=== PATIENT | female | born 1985 | race Caucasian/White ===

== ENCOUNTER 2017-03-21 00:28 | Emergency (ER) | payer MEDICARE ==
[2016-02-22 13:35] VITALS: BMI 23.7
[~2017-03-21 00:28] MED LIST: ELAVIL10 MG PO; HYDROCODONE-APA1 TAB PO; IBUPROFEN600 MG PO; NEURONTIN 400400 MG PO; PROAIR HFA8.5 GM INH; WELLBUTRIN SR150 MG PO
== END 2017-03-21 02:30 | disposition home or self-care (01) ==
LOC: D.ER 00:28
DX: R10.11 Right upper quadrant pain (principal); R31.9 Hematuria, unspecified; F17.200 Nicotine dependence, unspecified, uncomplicated

== ENCOUNTER 2017-09-28 13:46 | Emergency (ER) | payer BC ==
[2016-02-22 13:35] VITALS: BMI 23.7
[2017-09-28 14:32] LABS: BASOPHILS 0.2 % (0-2); EOSINOPHILS 1.1 % (0-7); HEMATOCRIT 44.5 % (36.0-48.0); HEMOGLOBIN 14.8 g/dL (12-16); IMMATURE GRANULOCYTES 0.2 % (0-5); LYMPHOCYTES 23.2 % (15-50); MCHC 33.3 g/dL (31.0-37.0); MCV 96.1 fL (80.0-100.0); MEAN PLATELET VOLUME 10.8 fL (7.4-10.4); MONOCYTES 7.2 % (2-11); NEUTROPHILS 68.1 % (40-80); PLATELET COUNT 192 10x3/uL (130-400); RBC 4.63 10x6/uL (4.00-5.40); RDW 12.3 % (11.5-14.5); WBC 8.4 10x3/uL (4.8-10.8)
[2017-09-28 14:52] LABS: ALBUMIN 4.1 g/dL (3.4-5.0); ALKALINE PHOSPHATASE 75 U/L (46-116); ALT (SGPT) 33 U/L (10-68); AMYLASE - SERUM 32 U/L (25-115); CALC OSMOLALITY 279 mosm/kg (275-300); CALCIUM 8.9 mg/dL (8.5-10.1); CARBON DIOXIDE 28.7 mmol/L (21.0-32.0); CHLORIDE - SERUM 104 mmol/L (98-107); CREATININE - SERUM 0.8 mg/dL (0.6-1.3); GLUCOSE 98 mg/dL (74-106); LIPASE 94 U/L (73-393); POTASSIUM - SERUM 3.6 mmol/L (3.5-5.1); PROTEIN - SERUM 7.6 g/dL (6.4-8.2); SODIUM 139 mmol/L (136-145); UREA NITROGEN 19 mg/dL (7-18); eGFR NON AFRICAN AMERICAN 87 mL/min (90-120)
[2017-09-28 14:56] LABS: APPEARANCE HAZY (CLEAR); BILIRUBIN NEGATIVE (NEGATIVE); COLOR YELLOW (YELLOW); GLUCOSE NEGATIVE (NEGATIVE); KETONE NEGATIVE (NEGATIVE); NITRITE NEGATIVE (NEGATIVE); PROTEIN NEGATIVE (NEGATIVE); SPECIFIC GRAVITY 1.015 (1.005-1.020); UROBILINOGEN NORMAL (NORMAL)
[2017-09-28 14:57] LABS: HCG URINE NEGATIVE (NEGATIVE)
[2017-09-28 15:05] LABS: BACTERIA FEW /hpf (NONE SEEN); EPITHELIAL CELLS OCC /hpf (0-5); RED CELLS - URINE 0-5 /hpf (0-5); WHITE CELLS - URINE 0-5 /hpf (0-5)
== END 2017-09-28 15:58 | disposition home or self-care (01) ==
LOC: D.ER 13:46
PROVIDERS: Emergency Medicine
DX: A08.4 Viral intestinal infection, unspecified (principal); F17.200 Nicotine dependence, unspecified, uncomplicated

== ENCOUNTER → 2019-03-12 16:05 | Outpatient (CLI) | payer BC, OTHER ==
[2016-02-22 13:35] VITALS: BMI 23.7
== END | disposition home or self-care (01) ==
LOC: D.US 16:00
PROVIDERS: ATTEND Family Medicine
DX: M79.604 Pain in right leg (principal)

== ENCOUNTER 2020-04-10 18:13 | Emergency (ER) | payer BC, OTHER ==
[~2020-04-10] VITALS: Ht 167.6 cm; Wt 70.5 kg
[2020-04-10 18:22] VITALS: Ht 167.6 cm; Wt 70.5 kg
[2020-04-10 19:50] LABS: BASOPHILS 0.4 % (0-2); EOSINOPHILS 2.3 % (0-7); HEMATOCRIT 39.9 % (36.0-48.0); HEMOGLOBIN 12.8 g/dL (12-16); IMMATURE GRANULOCYTES 0.1 % (0-5); LYMPHOCYTES 33.5 % (15-50); MCH 31.1 pg (26.0-34.0); MCHC 32.1 g/dL (31.0-37.0); MCV 96.8 fL (80.0-100.0); MEAN PLATELET VOLUME 10.1 fL (7.4-10.4); MONOCYTES 5.2 % (2-11); NEUTROPHILS 58.5 % (40-80); RBC 4.12 10x6/uL (4.00-5.40); RDW 12.6 % (11.5-14.5); WBC 10.2 10x3/uL (4.8-10.8)
[2020-04-10 19:57] LABS: PLATELET COUNT 274 10x3/uL (130-400)
[2020-04-10 20:01] LABS: BILIRUBIN NEGATIVE (NEGATIVE); KETONE NEGATIVE (NEGATIVE); NITRITE NEGATIVE (NEGATIVE); UROBILINOGEN NORMAL mg/dL (< 2)
[2020-04-10 20:02] LABS: BACTERIA MODERATE HPF (NONE SEEN); EPITHELIAL CELLS 0-5 /hpf (0-5); WHITE CELLS - URINE 0-5 HPF (0-4)
[2020-04-10 20:19] LABS: CALC OSMOLALITY 281 mosm/kg (275-300); CALCIUM 8.6 mg/dL (8.5-10.1); CARBON DIOXIDE 25.1 mmol/L (21.0-32.0); CHLORIDE - SERUM 106 mmol/L (98-107); CREATININE - SERUM 0.7 mg/dL (0.6-1.3); GLUCOSE 117 mg/dL (74-106); POTASSIUM - SERUM 3.9 mmol/L (3.5-5.1); SODIUM 140 mmol/L (136-145); UREA NITROGEN 17 mg/dL (7-18); eGFR NON AFRICAN AMERICAN > 90 mL/min (90-120)
[2020-04-10 20:29] LABS: ALBUMIN 3.9 g/dL (3.4-5.0); ALKALINE PHOSPHATASE 65 U/L (30-120); ALT (SGPT) 22 U/L (10-68); AMYLASE - SERUM 44 U/L (25-115); BILIRUBIN - TOTAL 0.21 mg/dL (0.2-1.3); LIPASE 99 U/L (73-393); PROTEIN - SERUM 6.9 g/dL (6.4-8.2); TROPONIN-I 0.022 ng/mL (0.000-0.060)
[2020-04-10 23:42] VITALS: BP 110/69
== END 2020-04-10 23:44 | disposition home or self-care (01) ==
LOC: D.ER 18:13
PROVIDERS: Family Medicine
DX: R10.32 Left lower quadrant pain (principal)

== ENCOUNTER 2020-09-03 14:43 | Emergency (ER) | payer BC ==
[~2020-09-03] VITALS: Ht 167.6 cm; Wt 72.7 kg
[2020-09-03 14:46] VITALS: BP 157/120; Ht 167.6 cm; Wt 72.7 kg
[2020-09-03 15:11] LABS: BASOPHILS 0.2 % (0-2); EOSINOPHILS 0.5 % (0-7); HEMATOCRIT 41.2 % (36.0-48.0); HEMOGLOBIN 13.6 g/dL (12-16); IMMATURE GRANULOCYTES 0.3 % (0-5); LYMPHOCYTE ABS# 3.65 10x3/uL (1.18-3.74); LYMPHOCYTES 28.3 % (15-50); MCH 32.2 pg (26.0-34.0); MCV 97.4 fL (80.0-100.0); MEAN PLATELET VOLUME 9.8 fL (7.4-10.4); MONOCYTES 4.5 % (2-11); NEUTROPHIL ABS# 8.52 10x3/uL (1.56-6.13); NEUTROPHILS 66.2 % (40-80); PLATELET COUNT 291 10x3/uL (130-400); RBC 4.23 10x6/uL (4.00-5.40); RDW 12.5 % (11.5-14.5); WBC 12.9 10x3/uL (4.8-10.8)
[2020-09-03 15:15] LABS: CALC OSMOLALITY 267 mosm/kg (275-300); CALCIUM 8.9 mg/dL (8.5-10.1); CARBON DIOXIDE 25.8 mmol/L (21.0-32.0); CHLORIDE - SERUM 101 mmol/L (98-107); CREATININE - SERUM 0.7 mg/dL (0.6-1.3); GLUCOSE 95 mg/dL (74-106); POTASSIUM - SERUM 3.5 mmol/L (3.5-5.1); SODIUM 134 mmol/L (136-145); UREA NITROGEN 12 mg/dL (7-18); eGFR NON AFRICAN AMERICAN > 90 mL/min (90-120)
[2020-09-03 15:24] LABS: ALBUMIN 4.2 g/dL (3.4-5.0); ALKALINE PHOSPHATASE 74 U/L (30-120); ALT (SGPT) 23 U/L (10-68); AMYLASE - SERUM 41 U/L (25-115); BILIRUBIN - TOTAL 0.35 mg/dL (0.2-1.3); LIPASE 83 U/L (73-393); PROTEIN - SERUM 7.4 g/dL (6.4-8.2)
[2020-09-03 15:25] LABS: TROPONIN-I < 0.017 ng/mL (0.000-0.060)
[2020-09-03 15:55] LABS: BACTERIA FEW HPF (NONE SEEN); BILIRUBIN NEGATIVE (NEGATIVE); KETONE NEGATIVE (NEGATIVE); NITRITE NEGATIVE (NEGATIVE); SQUAMOUS EPITHELIAL OCC HPF (0-4); UROBILINOGEN NORMAL mg/dL (< 2); WHITE CELLS - URINE NONE SEEN HPF (0-4)
[2020-09-03] MEDS ORDERED: ZOFRAN ODT4 MG/UDTAB PO (18:30)
== END 2020-09-03 18:50 | disposition home or self-care (01) ==
LOC: D.ER 14:43
PROVIDERS: Family Medicine
DX: R10.32 Left lower quadrant pain (principal); M54.9 Dorsalgia, unspecified

== ENCOUNTER 2020-11-02 10:04 | Day surgery (SDC) | payer BC ==
[2020-10-30 10:30] LABS: BASOPHILS 0.6 % (0-2); EOSINOPHILS 2.5 % (0-7); HEMATOCRIT 36.9 % (36.0-48.0); HEMOGLOBIN 12.1 g/dL (12-16); IMMATURE GRANULOCYTES 0.2 % (0-5); LYMPHOCYTE ABS# 2.25 10x3/uL (1.18-3.74); LYMPHOCYTES 35.6 % (15-50); MCH 31.2 pg (26.0-34.0); MCHC 32.8 g/dL (31.0-37.0); MCV 95.1 fL (80.0-100.0); MEAN PLATELET VOLUME 10.4 fL (7.4-10.4); MONOCYTES 4.6 % (2-11); NEUTROPHIL ABS# 3.57 10x3/uL (1.56-6.13); NEUTROPHILS 56.5 % (40-80); PLATELET COUNT 240 10x3/uL (130-400); RBC 3.88 10x6/uL (4.00-5.40); RDW 12.2 % (11.5-14.5); WBC 6.3 10x3/uL (4.8-10.8)
[~2020-11-02] VITALS: Ht 167.6 cm; Wt 74.4 kg
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
[~2020-11-02 10:04] MED LIST changes: +IBUPROFEN800 MG PO; +ULTRAM50 MG PO; +ZOFRAN ODT4 MG/UDTAB PO
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
[2020-11-02 10:41] VITALS: BP 107/59; Ht 167.6 cm; Wt 74.4 kg
[2020-11-02 10:54] LABS: HCG URINE NEGATIVE (NEGATIVE)
--- NOTE | 2020-11-02 14:30 | NUR ---
DC TEACHING TO PT AND COMPLETE. VERBALIZED UNDERSTANDING. PIV REMOVED, CATHETER INTACT, PRESSURE APPLIED. PT GETTING DRESSED WITH 'S HELP. 3306 PT DC'D VIA TO POV WITH ALL BELONGINGS AND DC PACKET. DRIVING.
== END 2020-11-02 14:52 | disposition home or self-care (01) ==
LOC: D.OPS 10:04
PROVIDERS: ATTEND Obstetrics & Gynecology
DX: R10.2 Pelvic and perineal pain (principal); N92.0 Excessive and frequent menstruation with regular cycle; N93.9 Abnormal uterine and vaginal bleeding, unspecified

== ENCOUNTER 2020-12-18 06:32 | Day surgery (SDC) | payer BC ==
[~2020-12-18] VITALS: Ht 165.1 cm; Wt 74.1 kg
--- NOTE | ~2020-12-18 | HEMODYNAMI ---
PATIENT:SANTA FLORES MEDICAL RECORD: [id number] : 83 [id number] ADMISSION DATE: 12/18/20 Generatedon:19:55 Patient name: SANTA FLORES Patient #: [id number] SSN: DO B: 1985 Date of study: 12/18/2020 Page: Of Hemodynamic Procedure Report Patient Data Patient Demographics Procedure consent was obtained First Name: SANTA Gender: Female Last Name: MARK : 1985 [facility] Initial: BETSY Age: 35 year(s) Patient #: [id number] Race: Unknown Additional ID: [id number] Contact details Address: [address] [place] [address] State: [place] City: [facility] Zip code: [address] Past Medical History Allergies Allergen Reaction Date Comments Reported Penicillins 12/18/2020 metronidazole,corticosteroids,neuromuscular blockers Sulfa drugs 12/18/2020 Other 12/18/2020 metronidazole,corticosteroids,neuromuscular allergy blockers Admission Admission Data Admission Date: 12/18/2020 Admission Time: 6:32 Height (in.): 65 BSA: 1.81 (m2) Height (cm.): 165.1 BMI: 27.12 (kg/m2) Weight (lbs.): 163 Weight (kg.): 73.94 Procedure Procedure Types Cath Procedure Peripheral Cath Diagnostic Procedure Venography Extremity Bilat Venogram Lower Ext Procedure Description Procedure Date Procedure Date: 12/18/2020 Procedure Start Time: 9:10 Procedure Staff Name Function Cheko Kinney MD Performing Physician Jeana Mccauley RT Housing Court Judge Bindu Garcia RN Nurse Isiah Spears RT Scrub Procedure Data Cath Procedure Fluoroscopy Diagnostic fluoroscopy Total fluoroscopy Time: 9.3 time: 9.3 min min Diagnostic fluoroscopy Total fluoroscopy dose: 223 dose: 223 mGy mGy Contrast Material Contrast Material Type Amount (ml) Isovue 300 45 Diagnostic catheters Device Type Used For End Catheter Placement Ivania Whyte 5FR. 100CM catheter ([id number]) Procedure Medications Medication Administration Route Dosage Lidocaine 1% added to field 20 Heparin Flush Bag added to field 2 bags (1000units/500ml NS) Benadryl I.V. 25 mg Versed I.V. 1 mg Fentanyl I.V. 50 mcg Versed I.V. 0.5 mg Fentanyl I.V. 25 mcg Ancef (1Gm/50ml NS) I.V.P.B 2 g Versed I.V. 0.5 mg Fentanyl I.V. 25 mcg Hemodynamics Rest BSA: 1.81 (m2) O2 Consumption: Estimated: 181.34 (ml/min) O2 Consumption indexed : Estimated:100.19 (ml/min/m) Heart Rate: 61 (bpm) Snapshots Pre Cath Intra NCS Post Cath Vital Signs Time Heart Resp SPO2 etCO2 NIBP (mmHg) Rhythm Pain Sedation Rate (ipm) (%) (mmHg) Status Level (bpm) 8:46:52 69 14 100 25.4 124/70(85) NSR 0 (11) 10(A) , No pain 8:51:02 64 16 100 0 124/79(94) NSR 0 (11) 10(A) , No pain 8:55:12 61 12 100 0 123/75(94) NSR 0 (11) 10(A) , No pain 9:00:11 64 4 100 21.6 Measuring NSR 0 (11) 10(A) , No pain 9:00:40 65 8 100 21.6 97/66(82) NSR 0 (11) 10(A) , No pain 9:05:37 65 0 100 30.6 129/68(100) NSR 0 (11) 10(A) , No pain 9:09:48 63 16 100 0 131/72(100) NSR 0 (11) 10(A) , No pain 9:14:02 73 18 100 20.2 132/68(97) NSR 0 (11) 8(A) , No pain 9:18:10 69 14 100 35.1 105/91(96) NSR 0 (11) 8(A) , No pain 9:23:03 69 15 99 35.1 121/70(90) NSR 0 (11) 8(A) , No pain 9:27:17 72 10 98 39.6 128/77(96) NSR 0 (11) 8(A) , No pain 9:31:27 74 11 100 41.9 121/76(92) NSR 0 (11) 8(A) , No pain 9:35:35 73 10 100 41.8 116/70(91) NSR 0 (11) 8(A) , No pain 9:39:43 68 13 100 28.4 125/70(86) NSR 0 (11) 8(A) , No pain 9:43:50 67 11 100 38.1 127/80(99) NSR 0 (11) 8(A) , No pain 9:47:59 66 10 99 38.8 127/76(92) NSR 0 (11) 8(A) , No pain 9:52:08 67 18 99 38.1 125/75(98) NSR 0 (11) 8(A) , No pain Medications Time Medication Route Dose Verified Delivered Reason Notes Effec tiveness by by 8:57:39 Lidocaine 1% added 20ml Cheko Still used for to vial Gregoria Kinney procedure field MD MERRILL 8:57:53 Heparin Flush added 2 Cheko Still used for Bag to bags Gregoria Kinney procedure (1000units/500ml field MD MERRILL NS) 8:58:11 Benadryl I.V. 25 mg Cheko Ruaon Per Gregoria mir MD RN 9:11:56 Versed I.V. 1 mg Cheko Ruano for Gregoria Garcia sedation RN 9:12:15 Fentanyl I.V. 50 Cheko Ruano for mcg Gregoria Garcia sedation RN 9:17:20 Versed I.V. 0.5 Cheko Ruano for mg Gregoria Garcia sedation RN 9:17:26 Fentanyl I.V. 25 Cheko Ruano for mcg Gregoria Garcia sedation RN 9:21:06 Ancef (1Gm/50ml I.V.P.B 2 g Cheko Ruano Per NS) Gregoria mir MD RN 9:39:06 Versed I.V. 0.5 Cheko Ruano for mg Gregoria Garcia sedation MD LIRA 9:39:12 Fentanyl I.V. 25 Cheko Ruano for mcg Gregoria melendez MD, RN Procedure Log Time Note 8:35:19 Patient Height : 65 inches 8:35:23 Patient Weight : 163 lbs 8:35:59 Time tracking: Regular hours (M-F 7:00 - 5:00) 8:36:11 Plan of Care:Hemodynamics will remain stable., Cardiac rhythm will remain stable., Comfort level will be maintained., Respiratory function will remain adequate., Patient/ family verbilizes understanding of procedure., Procedure tolerated without complication., Recovers from procedure without complications.. 8:36:59 Patient received from Outpatients to IR Alert and oriented. Tansferred to table in Supine position. 8:37:06 Signed procedure consent form obtained from patient. 8:37:19 H&P Date Dictated: 12/18/2020 Within 30 days and on chart., H&P Addendum completed by physician on day of procedure. (MUST COMPLETE FOR ALL OUTPATIENTS). 8:37:25 Pre-procedure instructions explained to patient. 8:37:26 Pre-op teaching completed and patient verbalized understanding. 8:37:58 Family in waiting room. 8:38:00 Patient NPO since Midnight. 8:40:00 Patient allergic to Penicillinsmetronidazole,corticosteroids,neuromuscular blockers 8:40:15 Patient allergic to Sulfa drugs 8:40:45 Patient allergic to Other allergymetronidazole,corticosteroids,neuromuscular blockers 8:41:20 Is the patient allergic to Iodine/contrast media? No. 8:41:23 Is patient on blood thinner?No 8:41:27 Patient diabetic? No. 8:41:29 8:41:29 ----Pre-sedation anethsthesia assessment.---- 8:41:32 Previous problem with sedation/anesthesia? No ? 8:41:35 Snore? No 8:41:37 Sleep apnea? No 8:41:39 Deviated septum? No 8:41:41 Opens mouth fully? Yes 8:41:43 Sticks out tongue? Yes 8:41:46 Airway obstruction? No ? 8:41:53 Dentures? No ? 8:42:18 Right neck area was prepped with chlora-prep and draped in sterile fashion 8:42:20 Alarms reviewed by Jorge Gastelum 8:42:32 1) 90+ Normal kidney functon but urine findings or structural abnormalities or genetic trait point to kidney disease. 8:42:44 Sedation plan: IV Moderate Sedation Medication:Versed, Fentanyl 8:43:19 Use device set IR Diagnostic 8:43:22 Tegaderm 4 x 4 (1626W) opened to sterile field. 8:43:24 Sterile Angiographic Pack opened to sterile field. 8:43:24 Bag Decanter (2001S) opened to sterile field. 8:43:34 BENTSON 145cm wire ([id number]) opened to sterile field. 8:43:41 Micropuncture VSI 4FR kit opened to sterile field. 8:45:41 ECG and BP/O2 sat monitors applied to patient. 8:45:43 Vital chart was started 8:45:59 Baseline sample Acquired. 8:46:03 Full Disclosure recording started 8:46:04 8:57:39 Lidocaine 1% 20ml vial added to field was administered by Cheko Kinney MD; used for procedure; Verbal order read back and verified. 8:57:53 Heparin Flush Bag (1000units/500ml NS) 2 bags added to field was administered by Cheko Kinney MD; used for procedure; Verbal order read back and verified. 8:58:11 Benadryl 25 mg I.V. was administered by Bindu Garcia RN; Per physician; Verbal order read back and verified. 9:09:58 Physician arrived 9::58 --------ALL STOP TIME OUT------ 9:09:59 Final Timeout: patient, procedure, and site verified with staff and physician. All members of the team are in agreement. 9:10:17 Fire Safety Assessment: A--An alcohol-based skin anteseptic being used preoperatively., B--The operative or invasive procedure is being performed above the xiphoid process or in the oropharynx., C--Open oxygen or nitrous oxide is being used. 9:10:39 Procedure started. 9:10:46 Local anesthetic to right IJ vein with Lidocaine 1% by Cheko Kinney MD.INITIAL ACCESS ONLY 9:11:56 Versed 1 mg I.V. was administered by Bindu Garcia RN; for sedation; Verbal order read back and verified. 9:12:15 Fentanyl 50 mcg I.V. was administered by Bindu Garcia RN; for sedation; Verbal order read back and verified. 9:12:19 SHEATH 6FR Destination (RSR01) opened to sterile field. 9:12:27 WELCH 260 wire ([id number]) opened to sterile field. 9:17:20 Versed 0.5 mg I.V. was administered by Bindu Garcia RN; for sedation; Verbal order read back and verified. 9:17:26 Fentanyl 25 mcg I.V. was administered by Bindu Garcia RN; for sedation; Verbal order read back and verified. 9:20:31 A Ivania Do Whyte 5FR. 100CM catheter ([id number]) was advanced over the wire and used for . 9:21:06 Ancef (1Gm/50ml NS) 2 g I.V.P.B was administered by Bindu Garcia RN; Per physician; Verbal order read back and verified. 9:23:03 GLIDE WIRE ANGLE 180cm ([id number]) opened to sterile field. 9:23:10 TORQUE DEVICE PLASTIC .038 ( TD01) opened to sterile field. 9:23:47 Baseline sample Acquired. 9:23:52 Baseline sample Acquired. 9:26:43 Direxion Straight Microcatheter ([id number]) opened to sterile field. 9:33:59 COIL Micronester 8MM ([id number]) opened to sterile field. 9:34:02 COIL Micronester 8MM (K04167) opened to sterile field. 9:34:05 COIL Micronester 8MM (R98878) opened to sterile field. 9:35:58 COIL Micronester 8MM (G51120) opened to sterile field. 9:38:12 COIL Micronester 6MM ([id number]) opened to sterile field. 9:38:46 STOPCOCK 3-Way Large Bore (T56052) opened to sterile field. 9:39:06 Versed 0.5 mg I.V. was administered by Bindu Garcia RN; for sedation; Verbal order read back and verified. 9:39:12 Fentanyl 25 mcg I.V. was administered by Bindu Garcia RN; for sedation; Verbal order read back and verified. 9:45:28 COIL Interlock 12 X 30 ([id number]) opened to sterile field. 9:47:50 COIL Interlock 14 X 30 ([id number]) opened to sterile field. 9:49:05 COIL Interlock 14 X 30 ([id number]) opened to sterile field. 9:52:31 Procedure ended.(Physican Out) 9:52:59 Fluoroscopy time 09.30 minutes. 9:53:03 Fluoroscopy dose: 223 mGy 9:53:03 Flurop Dose total: 223 9:53:07 Contrast amount:Isovue 300 45ml. 9:53:11 Procedure and supply charges have been captured, reviewed, submitted and are correct. 9:54:40 Report given to Outpatients. 9:55:10 Vital chart was stopped Device Usage Item Name Manufacture Quantity Catalog Hospital Part Current Minima l Lot# / Number Charge Number Stock Stock Serial# Code Tegaderm 4 x 3M 1 1626W [id number] 372252 549535 5 4 (1626W) Sterile Cardinal 1 [id number] 533636 691912 5 Angiographic Health Pack Bag Decanter Microtek 1 696594 77678 320609 5 () [employer] BENTSON 145cm [employer] 1 [id number] 198630 250562 5 wire ([id number]) Micropuncture VSI VASCULAR 1 [id number] 281253 523763 5 VSI 4FR kit SOLUTIONS SHEATH 6FR Terumo 1 RSR01 691170 13636 412937 5 Destination (RSR01) WELCH 260 [employer] 1 P63844 868279 386484 410573 5 wire ([id number]) Merit Impress Merit 1 [id number] 462434 297028 5 [facility] Medical 5FR. 100CM catheter ([id number]) GLIDE WIRE Terumo 1 FX4114 713312 985816 651299 5 ANGLE 180cm (JK4615) TORQUE DEVICE [employer] 1 TD01 047324 317924 963436 5 PLASTIC .038 Scientific ( TD01) Direxion [employer] 1 [id number] 809773 865230 931543 5 Straight Scientific Microcatheter ([id number]) COIL [facility] 2 I11792 855203 513956 5 [id number] Micronester [id number] 8MM ([id number]) COIL [facility] 1 U69994 939694 554135 5 [id number] Micronester 6MM ([id number]) STOPCOCK [facility] 1 N50168 045255 8123 656582 5 3-Way Large Bore (V03777) COIL [employer] 1 [id number] 536294 518558 475855 5 [id number] Interlock 12 Scientific X 30 ([id number]) COIL [employer] 1 [id number] 184327 181495 652592 5 [id number] Interlock 14 Scientific X 30 ([id number]) Signature Audit [place] Stage Time Signature Unsigned Intra-Procedure 12/18/2020 Jeana Mccauley 9:55:04 AM RT(R) [facility] [address] [place] [address]
[2020-12-18 07:16] LABS: CALC OSMOLALITY 284 mosm/kg (275-300); CALCIUM 8.8 mg/dL (8.5-10.1); CARBON DIOXIDE 27.3 mmol/L (21.0-32.0); CHLORIDE - SERUM 108 mmol/L (98-107); CREATININE - SERUM 0.7 mg/dL (0.6-1.3); GLUCOSE 104 mg/dL (74-106); POTASSIUM - SERUM 3.8 mmol/L (3.5-5.1); SODIUM 142 mmol/L (136-145); UREA NITROGEN 17 mg/dL (7-18); eGFR NON AFRICAN AMERICAN > 90 mL/min (90-120)
[2020-12-18 07:24] LABS: BASOPHILS 0.9 % (0-2); EOSINOPHILS 1.9 % (0-7); HEMATOCRIT 36.4 % (36.0-48.0); HEMOGLOBIN 12.2 g/dL (12-16); LYMPHOCYTES 34.3 % (15-50); MCH 31.4 pg (26.0-34.0); MCHC 33.5 g/dL (31.0-37.0); MCV 93.7 fL (80.0-100.0); MEAN PLATELET VOLUME 8.8 fL (7.4-10.4); MONOCYTES 5.1 % (2-11); NEUTROPHILS 57.8 % (40-80); PLATELET COUNT 257 10x3/uL (130-400); RBC 3.88 10x6/uL (4.00-5.40); RDW 12.7 % (11.5-14.5); WBC 9.5 10x3/uL (4.8-10.8)
[2020-12-18 07:29] LABS: APTT 27.8 SECONDS (22.8-39.4); INR 1.16 (0.85-1.17); PROTIME 13.7 SECONDS (11.6-15.0)
[2020-12-18 07:33] VITALS: BP 104/53; Ht 165.1 cm; Wt 74.1 kg
[2020-12-18 08:19] LABS: HCG URINE NEGATIVE (NEGATIVE)
--- NOTE | 2020-12-18 10:23 | NUR ---
DR. DIXON AT BEDSIDE AND SPOKE WITH PT AND
--- NOTE | 2020-12-18 13:33 | NUR ---
1140 PRANAV RN AT BEDSIDE. 200CC IV FLUID ADMINISTERED FOR BP 94/56. PER HAYDEE ROCK TO DISCHARGE. IV D/C'D WITH CANNULA INTACT, PRESSURE HELD AND DRSG PLACED. DISCHARGE INSTRUCTIONS GIVEN AND PT VERBALIZED AN UNDERSTANDING.
== END 2020-12-18 12:15 | disposition home or self-care (01) ==
LOC: D.RAD 06:32
PROVIDERS: ATTEND Radiology Diagnostic Radiology
DX: N94.89 Other specified conditions associated with female genital organs and menstrual cycle (principal); R10.2 Pelvic and perineal pain